=== PATIENT | female | born 1980 | race Caucasian/White ===

== ENCOUNTER → 2021-07-29 13:09 | Outpatient (CLI) | payer BC, SELFPAY ==
--- NOTE | ~2021-07-29 | MM_ITS ---
EXAMINATION: MM screening bill BI w addie HISTORY: Screening TECHNIQUE: Craniocaudal and mediolateral oblique 3-D tomosynthesis images were obtained and synthetic 2-D images were generated. CAD analysis was submitted and interpreted. COMPARISON: No prior mammogram is available for comparison at this institution. BREAST PARENCHYMAL COMPOSITION: The breasts are heterogeneously dense, which may obscure small masses . FINDINGS: There is no evidence of suspicious mass, calcification, or architectural distortion to sugg est malignancy in either breast. There has been no suspicious interval change. IMPRESSION: 1. No mammographic evidence of malignancy. 2. Recommend routine screening mammography in one year. 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
== END ==
PROVIDERS: PCP Family Medicine Sports Medicine; Visit Provider Obstetrics & Gynecology
DX: Z12.31 Encounter for screening mammogram for malignant neoplasm of breast (principal)
CPT/HCPCS: 77063; 77067

== ENCOUNTER → 2022-11-02 11:23 | Outpatient (CLI) | payer BC, SELFPAY ==
--- NOTE | ~2022-11-02 | MM_ITS ---
EXAMINATION: MM screening bill BI w addie HISTORY: Screening mammogram TECHNIQUE: Craniocaudal and mediolateral oblique 3-D tomosynthesis images were obtained and synthetic 2-D images were generated. CAD analysis was submitted and interpreted. COMPARISON: 05/28/2022 BREAST PARENCHYMAL COMPOSITION: There are scattered areas of fibroglandular density. FINDINGS: RIGHT BREAST: No suspicious mass, calcification, or architectural distortion are identified to sugges t malignancy. There has been no suspicious interval change. LEFT BREAST: There is focal asymmetry in the middle third of the upper breast at the posterior fibrog landular margin in line with the nipple axis. IMPRESSION: 1. Left breast focal asymmetry. 2. Additional mammographic views and possible breast ultrasound are recommended. BI-RADS Category 0: Incomplete: Needs additional imaging evaluation. Reviewed, dictated and finalized at location A. IMPRESSION: 1. Left breast focal asymmetry. 2. Additional mammographic views and possible breast ultrasound are recommended . BI-RADS Category 0: Incomplete: Needs additional imaging evaluation.
== END ==
PROVIDERS: PCP Obstetrics & Gynecology; Visit Provider Obstetrics & Gynecology
DX: Z12.31 Encounter for screening mammogram for malignant neoplasm of breast (principal); R92.8 Other abnormal and inconclusive findings on diagnostic imaging of breast
CPT/HCPCS: 77063; 77067

== ENCOUNTER → 2022-11-30 08:43 | Outpatient (CLI) | payer BC, SELFPAY ==
--- NOTE | ~2022-11-30 | MMUS_ITS ---
EXAMINATION: MM diagnostic bill LT w addie, US breast LT complete HISTORY: Left breast focal mammographic asymmetry reported on 11/02/2022 screening mammogram TECHNIQUE: Additional 3-D tomosynthesis images of the left breast were performed and synthetic 2-D im ages were generated. CAD analysis was submitted and interpreted. High resolution complete left breast ultrasound examination including all 4 quadrants and subareolar area was performed. COMPARISON: 11/02/2022, 07/29/2021 bilateral screening mammogram examinations FINDINGS: MAMMOGRAPHIC FINDINGS: No reproducible mass lesion or architectural distortion or any malignant calcification, skin thickeni ng or retraction is detected. ULTRASOUND: 11:00 7 cm from nipple at area of palpable complaint: There is a parallel circumscribed approximately 3.4 x 12 x 8.4 mm complex mixed solid and cystic area, without internal vascularity or any suspiciou s shadowing, benign in appearance. At 7:00 4.5 cm from the nipple there is a similar parallel circumscribed 2.5 x 7 x 6 mm mixed echogen ic and cystic area with through transmission and posterior enhancement, benign in appearance. At 10:00 4 cm from the nipple there are couple of subtle lucencies measuring up to 2.4 mm maximal dim ension, benign in appearance, without internal vascularity or posterior shadowing. No suspicious mass or shadowing is detected in the left breast. IMPRESSION: 1. Benign findings 2. Routine annual mammographic screening is recommended. BI-RADS Category 2: Benign finding(s). Reviewed, dictated and finalized at location A. IMPRESSION: 1. Benign findings 2. Routine annual mammographic screening is recommended. BI-RADS Category 2: Benign finding(s).
== END ==
PROVIDERS: PCP Family Medicine Sports Medicine; Visit Provider Obstetrics & Gynecology
DX: R92.8 Other abnormal and inconclusive findings on diagnostic imaging of breast (principal)
CPT/HCPCS: 76641; 77061; 77065; G0279

== ENCOUNTER 2024-02-02 01:11 | Day surgery (SDC) | payer BC, SELFPAY ==
[2024-01-13 12:28] VITALS: BMI 21.4
[2024-02-02 06:45] VITALS: BP 103/76; PULSE 79; RESP 16; TEMP 36.2; O2SAT 100; BMI 20.9
[2024-02-02] MEDS: LACTATED RINGERS 1,000 ML 150 ML IV CONT (07:07)
--- NOTE | 2024-02-02 07:29 | WPDANESEPPF ---
Anes - Initial Pre Proc Eval Procedure: Operation Date: 02/02/24 08:00 Proposed Procedures p Colonoscopy - Lasha Lilly MD Date/Time: 02/02/24 07:29 Surgeon: Lasha Lilly MD Pre Op Diagnosis: + hemoccult, fam. Hx. colon CA Patient Data Age: 43 Gender: F Height: 1.63 m Weight: 55.4 kg Last Vital Signs Temp 97.2 F L 02/02/24 06:45 Pulse 79 02/02/24 06:45 Resp 16 02/02/24 06:45 BP 103/76 02/02/24 06:45 Pulse Ox 100 02/02/24 06:45 O2 Del Method Room Air 02/02/24 06:45 Allergies Allergy/AdvReac Type Severity Reaction Status Date / Time No Known Allergies Allergy Verified 02/02/24 06:54 Home Medications Medication Instructions Recorded Confirmed Type linaclotide 72 mcg capsule 72 mcg PO ONCE PRN Constipation 01/13/24 02/02/24 History ([place]) Patient hx anesthesia problems: none Family hx anesthesia problems: none Results Review: All pre-operative results and documents have been reviewed as part of the pre-operative evaluation. [facility] Social History Social History Smoking status: Current some day smoker Tobacco type: cigarettes Living arrangements: with family Spiritual care concerns: No Anes - Eval Final PreProcedure Day of Procedure 02/02/24 07:29 Patient weight: normal Heart: regular rate and rhythm Lungs: clear to auscultation Airway: Mallampati scale class II Neurological: alert and oriented Last oral intake: >/= 8 hours ASA classification: II Emergent: no Anesthetic plan: proceed Anesthesia type and monitoring: general GIVS and standard monitoring Results Review: All pre-operative results and documents have been reviewed as part of the pre-operative evaluation. Informed Consent: The patient's anesthetic plan and its attendant risks and benefits were discussed with the patient/family/POA. Questions were solicited and answers provided to the satisfaction of the patient/family/POA.
--- NOTE | 2024-02-02 07:40 | PM.HPGS ---
History of Present Illness History of Present Illness Consent: Risks, benefits, and alternatives have been discussed and questions answered. Patient agrees to proceed with procedure. Chief complaint: fam. Hx. colon CA Narrative: Nila Archuleta is a 43 year old female here for another colonoscopy, she has 2 grandparents with colon cancer Review of Systems Review of Systems: All systems reviewed & are unremarkable except as noted in HPI and below PMFSH Past Medical History Medical History (Updated 02/02/24 @ 07:42 by Lasha Lilly MD) Colon cancer screening Social History Social History Smoking status: Current some day smoker Tobacco type: cigarettes Living arrangements: with family Spiritual care concerns: No Meds Home Medications and Allergies Home Medications Medication Instructions Recorded Confirmed Type linaclotide 72 mcg capsule 72 mcg PO ONCE PRN Constipation 01/13/24 02/02/24 History ([place]) Allergies Allergy/AdvReac Type Severity Reaction Status Date / Time No Known Allergies Allergy Verified 02/02/24 06:54 Vital Signs Vital Signs - 24 hr 02/02/24 06:45 Temperature 97.2 F L Pulse Rate 79 Respiratory Rate 16 Blood Pressure 103/76 Pulse Oximetry 100 Oxygen Delivery Room Air Exam Const: General: comfortable and no acute distress HENMT: Face/Nose/Sinus: Normal nares present Eyes: General: appearance normal, both eyes and all related structures Neck: Neck: no JVD Resp: Auscultation: clear to auscultation bilaterally Cardio: Rate: regular rate Rhythm: regular rhythm GI: Inspection: non-distended GI Palp: Yes Soft to palpation Skin: General skin exam: normal color Neuro: General: gait normal Speech: normal speech Extrem: General: normal to inspection Psych: Mental Status: mental status grossly normal Assessment and Plan Assessment and plan (1) Colon cancer screening: Code(s): Z12.11 - Encounter for screening for malignant neoplasm of colon Status: Acute Assessment and Plan: colonoscopy
[2024-02-02 08:02] VITALS: BP 101/67; PULSE 73; RESP 21; O2SAT 100
[2024-02-02 08:12] VITALS: BP 105/66; PULSE 71; RESP 20; O2SAT 100
[2024-02-02 08:22] VITALS: BP 110/67; PULSE 60; RESP 23; O2SAT 100
== END 2024-02-02 08:34 | disposition home or self-care (01) ==
PROVIDERS: PCP Family Medicine; Referring Provider Obstetrics & Gynecology; Visit Provider Internal Medicine Gastroenterology
PROC: 0DJD8ZZ Inspection of Lower Intestinal Tract, Via Natural or Artificial Opening Endoscopic (ICD-10-PCS; CPT 45378; principal; 2024-02-02 08:00)
DX: Z12.11 Encounter for screening for malignant neoplasm of colon (principal); K64.8 Other hemorrhoids; F17.210 Nicotine dependence, cigarettes, uncomplicated; Z80.0 Family history of malignant neoplasm of digestive organs
CPT/HCPCS: 45378; J2704; J7120